=== PATIENT | female | born 1955 | race Two or more races ===

== ENCOUNTER 2024-06-15 08:41 | Inpatient (IN) | payer MEDICARE, BC, SELFPAY ==
[2024-05-22 13:54] VITALS: BMI 32.2
[2024-05-22 13:59] LABS: Hematocrit 44.3 % (37.0-47.0); Hemoglobin 14.3 g/dL (12.0-16.0); Mean Corp Hgb Conc. 32.3 g/dL (33.0-37.0); Mean Corpuscular Hgb 29.5 pg (27.0-31.0); Mean Corpuscular Volume 91.3 fL (81.0-99.0); Mean Platelet Volume 9.9 fL (7.4-10.4); Platelet Count 283 10^3/uL (130-400); Red Blood Cell Count 4.85 10^6/uL (4.20-5.40); Red Cell Dist. Width 14.2 % (11.5-14.5); White Blood Cell Count 7.3 10^3/uL (4.8-10.8)
[2024-05-22 14:41] LABS: ALT (SGPT) 25 U/L (0-35); AST (SGOT) 25 U/L (14-36); Albumin 4.4 g/dl (3.5-5.0); Alkaline Phosphatase 89 U/L (38-126); Blood Urea Nitrogen 16 mg/dl (7-17); Calcium 9.5 mg/dl (8.4-10.2); Carbon Dioxide 29 mmol/L (22-30); Chloride 99 mmol/L (98-107); Estimated Creatinine Clearance 69 ml/min; Glucose 70 mg/dl (70-99); Potassium 4.8 mmol/L (3.5-5.1); Sodium 137 mmol/L (135-145); Total Bilirubin 0.3 mg/dl (0.2-1.3); Total Protein 7.4 g/dl (6.3-8.2); eGFR > 60.00
[2024-05-23 11:39] LABS: Glycohemoglobin (HgbA1c) 5.4 % (4.0-5.6)
[2024-06-08 11:55] VITALS: BMI 32.2
[2024-06-15] VITALS (9 sets, daily range): BP systolic 113–150; BP diastolic 66–82; PULSE 75–76; O2SAT 98; BMI 32.2
--- NOTE | 2024-06-15 08:38 | W.PN.UPDATE ---
Update Note
Progress Note Update
L knee OA s/p L TKA w/ Dr Parr 06/15/24
DVT prophylaxis - Eliquis at modified dosing, b/l venous foot pumps
- Home Eliquis dosing to be resumed POD 3 if remaining hemodynamically stable
HTN - + parameters - monitor BP
PAF, PACs/PVCs, and rate-related LBBB - monitor on tele
- Continue Diltiazem without interruption
- Eliquis as stated above
Suspected DIANN - sleep study advised previously but declined
- Monitor O2
- IS
Peripheral neuropathy and cervical radiculopathy - add Gabapentin HS
Recent UTI - treatment w/ Ceftin pre-op
- IV Ancef anibal-op
HLD
R vertebral artery pseudoaneurysm
Horseshoe kidney
Chronic lacunar infarction on brain MRI 2021, no residual deficits reported
Gastric cancer, 2016, s/p gastrectomy, radiation and chemo
Osteoporosis
Obesity, BMI 32.2
[2024-06-15] MEDS: NORMOSOL-R/PLASMALYTE-A 1000 IV ×3 (09:15→14:37)
[2024-06-15] MEDS: BACTROBAN NASAL 1 GRAM NASAL (09:18)
[2024-06-15] MEDS: TYLENOL 650 MG PO ×4 (09:18→23:54)
[2024-06-15] MEDS: CELEBREX 200 MG PO (09:19)
[2024-06-15] MEDS: ULTRAM 50 MG PO ×2 (13:49→17:57)
[2024-06-15] MEDS: FLORASTOR 250 MG PO (16:41)
[2024-06-15] MEDS: CRESTOR 10 MG PO (17:56)
--- NOTE | 2024-06-15 19:17 | PTCARENOTE ---
Pt arrived aprox 1410 from PACU in bed. Pt had T LKA done. Dressing intact with ice pack applied. Pt will minimal sensation at the time to left lower leg. Pt will order lunch. Admission and assessment completed. Pain level controlled. PT will work
with patient once sensation comes back. Instructed to ring for assistance OOB.
[2024-06-15] MEDS: COLACE 100 MG PO (20:14)
[2024-06-15] MEDS: ELIQUIS 2.5 MG PO (20:14)
[2024-06-15] MEDS: CARAFATE 1 GRAM PO (20:14)
[2024-06-15] MEDS: SENOKOT 17.2 MG PO (20:15)
[2024-06-15] MEDS: HIPREX 1 GRAM PO (20:15)
[2024-06-15] MEDS: DECADRON 4 MG PO (20:15)
[2024-06-15] MEDS: ANCEF 5 IV (20:16)
[2024-06-15] MEDS: ZOFRAN 4 MG IV (20:28)
[2024-06-15] MEDS: DILAUDID 0.5 MG IV (21:58)
[2024-06-15] MEDS: BACTROBAN 2% OINTMENT 1 APPLIC NASAL (22:02)
[2024-06-15] MEDS: VITAMIN D3 (cholecalciferol) 25 MCG PO (22:02)
[2024-06-15] MEDS: NEURONTIN 300 MG PO (22:02)
[2024-06-15] MEDS: DIOVAN 40 MG PO (22:10)
[2024-06-16] MEDS: ULTRAM 50 MG PO ×2 (00:12→06:14)
[2024-06-16] MEDS: MAALOX 30 ML PO (00:12)
[2024-06-16] MEDS: ANCEF 5 IV (03:24)
[2024-06-16] MEDS: TYLENOL 650 MG PO ×2 (03:27→08:11)
[2024-06-16 03:29] VITALS: BP 138/81
[2024-06-16 07:40] VITALS: BP 154/78
[2024-06-16] MEDS: SENOKOT 17.2 MG PO (08:10)
[2024-06-16] MEDS: CARAFATE 1 GRAM PO (08:10)
[2024-06-16] MEDS: CARDIZEM CD 180 MG PO (08:10)
[2024-06-16] MEDS: BACTROBAN 2% OINTMENT 1 APPLIC NASAL (08:10)
[2024-06-16] MEDS: ELIQUIS 2.5 MG PO (08:10)
[2024-06-16] MEDS: COLACE 100 MG PO (08:10)
[2024-06-16] MEDS: DECADRON 4 MG PO (08:11)
[2024-06-16] MEDS: HIPREX 1 GRAM PO (08:11)
[2024-06-16] MEDS: FLORASTOR 250 MG PO (08:11)
[2024-06-16 09:00] VITALS: BP 143/74; PULSE 94
[2024-06-16 09:27] LABS: Hepatitis C Antibody Negative (Negative)
--- NOTE | 2024-06-16 09:55 | CM ---
Addendum entered by Lori Almaraz 06/16/24 10:06:
Son to transport home
Original Note:
IA completed
Met with patient at bedside.
Will need script for jorje - Penny Elizondo will give to PT
Patient lives with son in a 1 story home, 1 step to enter
DME: Shower chair, cane, script given for walker PT will provide
Patient stats she has PT set up with [facility] - [id number] (Kortney Smith) who will be coming to her home.
Spoke with [facility] PT office regarding patient d/c & stated they have her script for PT
Patient has family support at home - declines [facility]
IMM explained & signed-in chart
PCP: Dr. Tipton in [place]
Pharmacy: [facility], [place]
PLAN: Home with [facility] fax #: [phone]
--- NOTE | 2024-06-16 10:01 | W.PN.ORTHO ---
Today's Communication / Plan
-
D/c today since clinically stable.
Assessment
.
Distal Motor Intact: Yes
Dressing:
Scant areas of old incisional bleeding.
Assessment:
L knee OA s/p L TKA w/ Dr Parr 06/15/24
DVT prophylaxis - Eliquis at modified dosing, b/l venous foot pumps
- Home Eliquis dosing to be resumed POD 3 since hemodynamically stable
HTN - + parameters - BPs overall stable
PAF, PACs/PVCs, and rate-related LBBB - rhythm stable on tele
- Continue Diltiazem without interruption
- Eliquis as stated above
Suspected DIANN - sleep study advised previously but declined
- O2 stable on RA
- IS
Peripheral neuropathy and cervical radiculopathy - continue Gabapentin HS
Recent UTI 2* E Coli per pt - treatment w/ Ceftin pre-op
- IV Ancef anibal-op
- Given improvement of symptoms w/ Ceftin, will advise she continue script until completion upon d/c. Reportedly has 2-3 left. 1 dose to be given now. Will advised continued probiotic use while on abx
HLD
R vertebral artery pseudoaneurysm
Horseshoe kidney
Chronic lacunar infarction on brain MRI 2021, no residual deficits reported
Gastric cancer, 2016, s/p gastrectomy, radiation and chemo
Osteoporosis
Obesity, BMI 32.2
Plan
.
Surgery / Date: L TKA w/ Dr Parr 06/15/24
DVT Prophylaxis: Other (Eliquis)
Activity:
Out of bed.
PT/OT
Discharge Plan: Home (w/ home PT. Pt has set this up prior to her surgery. )
Subjective
.
.:
Patient resting comfortably in her chair.
L knee pain overall well tolerated w/ current pain meds.
Denies any new significant complaints.
Did well w/ both PT and OT.
Eager for potential d/c.
Vital Signs and Labs
.
Vital Signs and Labs:
Lab Results
05/22/24 12:05
05/22/24 12:05
Temp Pulse Resp BP Pulse Ox
98.1 F 87 18 154/78 97
06/16/24 07:40 06/16/24 07:40 06/16/24 07:40 06/16/24 07:40 06/16/24 07:40
Non-invasive Hgb result: 14.4
Physical Exam
-
HEENT: No pallor, cyanosis, or jaundice. Throat clear.
NECK: Supple. No JVD.
RESPIRATORY: Lungs clear to auscultation.
CVS: S1, S2 normal. RRR.�
ABDOMEN: Soft, non-tender. No distension. Obese.
EXTREMITIES: Expected post-surgical L knee edema. Strength equal, no calf pain with palpation/dorsiflexion. Calves soft.
CLEANING MAID: AOx3. No focal deficits. black oxide coating equipment tender grossly intact
--- NOTE | 2024-06-16 10:14 | W.DS.TRANS ---
DC Summary - Tool Design Engineer
-
Discharge Instructions:
Sleep Apnea Risk Low
Discharge Diagnosis/Procedures L knee OA s/p L TKA w/ Dr Parr 06/15/24
Diet Regular
Activity As tolerated,With Walker
Driving Restrictions Not until seen by your Dr
Bathing Restrictions OK to Shower
Other Services PT
Wound Care Dressing to be removed 1 week post-surgery.
[place] to be removed at 2 week follow-up with
surgeon's office.
Instructions:
Stand-Alone Forms: Total Hip/Knee Replacement D/C
Changes to Home Medications: Yes
Discharge Medications:
DC Medications w/original date entered in [facility]
B-complex with vitamin C 1 cap PO HS Supplement 05/21/24
Cranberry Pac 1 dose PO HS Supplement 05/21/24
Hair, Skin, Nails with Biotin 1 dose PO DAILY Supplement 05/21/24
Probiotic 1 dose PO DAILY Supplement 05/21/24
Women's Multi 1 dose PO DAILY Supplement 05/21/24
apixaban 5 mg tablet (Eliquis) 5 mg PO DAILY Heart Disease/Condition 05/21/24
calcium 600 mg (as carbonate)-vitamin D3 10 mcg (400 unit) tablet (Calcium 600 + D(3)) 1 tab PO HS Supplement 05/21/24
diltiazem HCl 180 mg capsule,24 hr,extended release 180 mg PO DAILY Heart Disease/Condition 05/21/24
methenamine hippurate 1 gram tablet 1 g PO BID Urinary Issue 05/21/24
rosuvastatin 10 mg tablet 10 mg PO QPM High Cholesterol 05/21/24
sucralfate 1 gram tablet 1 g PO BID Gastrointestinal Issue 05/21/24
dexamethasone 4 mg tablet 4 mg PO BID inflammation #6 tabs 05/22/24
gabapentin 300 mg capsule 300 mg PO HS sleep/pain #10 caps 05/22/24
mupirocin 2 % topical ointment 1 applic topical BID infection prevention #1 tube 05/22/24
ondansetron 4 mg disintegrating tablet 4 mg PO Q6H PRN n/v #20 tabs 05/22/24
tramadol 50 mg tablet 50 mg PO Q6H PRN 1 tab moderate pain, 2 if severe #30 tabs 05/22/24
acetaminophen 500 mg tablet (Tylenol Extra Strength) 1,000 mg (2 x 500 mg) PO Q6H pain #60 tabs 06/16/24
apixaban 2.5 mg tablet (Eliquis) 2.5 mg PO BID #3 tabs 06/16/24
cefuroxime axetil 250 mg tablet 250 mg PO BID Infection #3 tabs 06/16/24
cholecalciferol (vitamin D3) 25 mcg (1,000 unit) tablet (Vitamin D3) 25 mcg PO HS #0 tabs 06/16/24
docusate sodium 100 mg capsule 100 mg PO BID #30 caps 06/16/24
sennosides 8.6 mg tablet (Lakeshia-jimenez) 17.2 mg (2 x 8.6 mg) PO BID #30 tabs 06/16/24
valsartan 40 mg tablet 40 mg PO HS Blood Pressure #30 tabs 06/16/24
Home Medication Changes
dexamethasone 4 mg tablet 4 mg PO BID inflammation #6 tabs 05/22/24
gabapentin 300 mg capsule 300 mg PO HS sleep/pain #10 caps 05/22/24
mupirocin 2 % topical ointment 1 applic topical BID infection prevention #1 tube 05/22/24
ondansetron 4 mg disintegrating tablet 4 mg PO Q6H PRN n/v #20 tabs 05/22/24
tramadol 50 mg tablet 50 mg PO Q6H PRN 1 tab moderate pain, 2 if severe #30 tabs 05/22/24
acetaminophen 500 mg tablet (Tylenol Extra Strength) 1,000 mg (2 x 500 mg) PO Q6H pain #60 tabs 06/16/24
apixaban 2.5 mg tablet (Eliquis) 2.5 mg PO BID #3 tabs 06/16/24
docusate sodium 100 mg capsule 100 mg PO BID #30 caps 06/16/24
sennosides 8.6 mg tablet (Lkaeshia-jimenez) 17.2 mg (2 x 8.6 mg) PO BID #30 tabs 06/16/24
Pending Results: No
[2024-06-16] MEDS: CEFTIN 250 MG PO (10:38)
[2024-06-16 10:54] VITALS: BP 143/74; O2SAT 94
[2024-06-16 11:00] VITALS: BP 147/80
== END 2024-06-16 11:23 | disposition home or self-care (01) | DRG 470 ==
LOC: 2 SOUTH 08:41
PROVIDERS: ADMITTING PHYSICIAN Specialist; FAMILY PHYSICIAN Internal Medicine
PROC: 0SRD0J9 Replacement of Left Knee Joint with Synthetic Substitute, Cemented, Open Approach (ICD-10-PCS; 2024-06-15)
DX: M17.12 Unilateral primary osteoarthritis, left knee (principal); N39.0 Urinary tract infection, site not specified; E66.9 Obesity, unspecified; I48.0 Paroxysmal atrial fibrillation; M54.12 Radiculopathy, cervical region; I44.7 Left bundle-branch block, unspecified; I49.3 Ventricular premature depolarization; I10 Essential (primary) hypertension; E78.5 Hyperlipidemia, unspecified; M81.0 Age-related osteoporosis without current pathological fracture; I72.6 Aneurysm of vertebral artery; G47.33 Obstructive sleep apnea (adult) (pediatric); B96.20 Unspecified Escherichia coli [E. coli] as the cause of diseases classified elsewhere; G62.9 Polyneuropathy, unspecified; I49.1 Atrial premature depolarization; Z96.651 Presence of right artificial knee joint; Q63.1 Lobulated, fused and horseshoe kidney; Z85.028 Personal history of other malignant neoplasm of stomach; Z68.34 Body mass index [BMI] 34.0-34.9, adult; Z92.21 Personal history of antineoplastic chemotherapy; Z92.3 Personal history of irradiation; Z90.3 Acquired absence of stomach [part of]; Z90.49 Acquired absence of other specified parts of digestive tract; Z86.73 Personal history of transient ischemic attack (TIA), and cerebral infarction without residual deficits; Z91.048 Other nonmedicinal substance allergy status; Z79.01 Long term (current) use of anticoagulants; Z87.440 Personal history of urinary (tract) infections
CPT/HCPCS: 36415; 73560; 80053; 83036; 85027; 86803; 87070; 97110; 97116; 97162; 97166; 97530; 97535; C1713; C1776

== ENCOUNTER 2024-06-27 15:05 | Inpatient (IN) | payer MEDICARE, BC, SELFPAY ==
[2024-06-27 10:20] VITALS: BP 157/86
[2024-06-27 12:52] LABS: % Basophils 0.2 % (0-2); % Eosinophils 0.2 % (0-6); % Immature Granulocytes 0.6 % (0-0.5); % Lymphocytes 7.4 % (20.5-51.1); % Neutrophils 85.6 % (42.2-75.2); Absolute Immature Granulocytes 0.1 10^3/uL (0-0.05); Absolute Lymphocytes 1.1 10^3/uL (1.2-3.4); Absolute Monocytes 0.9 10^3/uL (0.1-0.6); Absolute Neutrophils 13.3 10^3/uL (1.4-6.5); Hematocrit 37.3 % (37.0-47.0); Mean Corp Hgb Conc. 32.2 g/dL (33.0-37.0); Mean Corpuscular Hgb 29.7 pg (27.0-31.0); Mean Corpuscular Volume 92.3 fL (81.0-99.0); Mean Platelet Volume 8.2 fL (7.4-10.4); Nucleated Red Blood Cells % 0 %; Platelet Count 336 10^3/uL (130-400); Red Blood Cell Count 4.04 10^6/uL (4.20-5.40); Red Cell Dist. Width 15.3 % (11.5-14.5); White Blood Cell Count 15.5 10^3/uL (4.8-10.8)
--- NOTE | 2024-06-27 13:01 | ED.GENMED ---
History of Present Illness
General
Chief Complaint: Post Operative Problem(s)
Source: patient
Exam Limitations: none
Time Seen by Provider: 06/27/24 10:57
Nursing documentation reviewed up to this point in time: agreed with
History of Present Illness
History of Present Illness:
69-year-old female with a past medical history of hypertension, hyperlipidemia, atrial fibrillation on Eliquis who presents to the ER for evaluation of left leg pain. Patient notably is status post left total knee replacement with Dr. Parr on
06/15/2024. She says she had been doing well with rehab but over the past 24 hours has developed significant pain and swelling in the left thigh/knee. She reports that this morning could not even bear weight due to pain and swelling and came to the
ER for assessment. She denies any injury or trauma that she can recall. Denies any chest pain or shortness of breath. She has been compliant with her Eliquis.
Review of Systems
Review of Systems
All Other Systems: ROS reviewed and negative except as documented in HPI and ROS
Constitutional: Denies fever
Respiratory: Denies trouble breathing
Cardiac: Denies chest pain
Musculoskeletal: Reports edema and other (Left leg pain and swelling)
Phy Exam
Physical Exam
Physical Exam:
General: Awake, alert, no acute distress
Head: Normocephalic, atraumatic
Eyes: Conjunctiva normal
Throat: Airway intact, handling secretions
Neck: Trachea midline, supple without meningismus
Lungs: Breathing comfortably no distress
Heart: Regular rate
Neuro: No gross deficits
Skin: Incision clean and dry with no erythema on left anterior knee
Extremities: Patient has marked edema in the left lower extremity, significant swelling specifically of the distal left thigh; patient has significant ecchymosis just proximal to the left knee and in the popliteal region/posterior thigh and
tenderness in this area; she does have a strong distal pulse in the left lower extremity both PT and DP palpable
Scores
Heart Failure Risk
Heart Failure Risk Score: Not Applicable
Heart Score for Chest Pain Patients
STEMI patient?: Not applicable
Withdrawal Assessment of Alcohol
Withdrawal Assessment Completed?: Not applicable
Course
Orders/Labs/Results
Orders:
Orders
06/27/24 10:58
US Periph Venous LOWER Ext LT Urgent
Comment:
Reason For Exam: swelling and pain s/p knee replacement
06/27/24 12:23
CT Lower Ext Angio W/wo Iv Con Urgent
Comment: CT angio--eval for extrav into thigh
Reason For Exam: thigh pain and swelling, brusing;
06/27/24 12:42
Type+Screen Urgent
Complete Blood Count/With Diff Urgent
Comprehensive Metabolic Panel Urgent
PTT Urgent
Prothrombin Time Urgent
06/27/24 12:54
ABO2 Urgent
BBK Wristband Number:
Associate notified that ABO2 has been ordered: ATIFF-ER
Date: 06/27/24
Time: 12:55
Elevator Erector ID: [id number]
06/27/24 14:13
HYDROmorphone [Dilaudid] 0.5 mg IV NOW STA
Abnormal Lab Results
06/27/24
12:42
WBC 15.5 H 10^3/uL
(4.8-10.8)
RBC 4.04 L 10^6/uL
(4.20-5.40)
MCHC 32.2 L g/dL
(33.0-37.0)
RDW 15.3 H %
(11.5-14.5)
Abs Immat Gran (auto) 0.1 H 10^3/uL
(0-0.05)
Absolute Neuts (auto) 13.3 H 10^3/uL
(1.4-6.5)
Absolute Lymphs (auto) 1.1 L 10^3/uL
(1.2-3.4)
Absolute Monos (auto) 0.9 H 10^3/uL
(0.1-0.6)
Immature Gran % 0.6 H %
(0-0.5)
Neutrophils % 85.6 H %
(42.2-75.2)
Lymphocytes % 7.4 L %
(20.5-51.1)
PT 17.1 H Sec
(11.4-14.6)
APTT 40.1 H Sec
(23.4-35.0)
Creatinine 0.5 L mg/dL
(0.6-1.0)
06/27/24 12:42
06/27/24 12:42
Vital Signs
Initial and Last Documented VS:
Initial Vital Signs
Temp Pulse Resp BP Pulse Ox
36.9 C 100 16 157/86 99
06/27/24 10:20 06/27/24 10:20 06/27/24 10:20 06/27/24 10:20 06/27/24 10:20
Last Documented Vital Signs
Temp Pulse Resp BP Pulse Ox
36.9 C 94 18 159/65 97
06/27/24 10:20 06/27/24 13:07 06/27/24 13:07 06/27/24 13:07 06/27/24 13:07
MDM/Problems Addressed
Differential Diagnosis Includes:
DVT, hematoma, postoperative swelling
MDM/Problems Addressed:
69-year-old female who is status post left knee replacement presents with increased swelling and pain in the left lower extremity as well as new bruising. Vitals and exam as above. She is notably on Eliquis. DVT study done in triage pending but
much lower suspicion for DVT; given acuity of onset significant ecchymosis and use of Eliquis suspicion is for acute hematoma in the left thigh. Given relative rapid increase in swelling and pain will check CT to evaluate for any active
extravasation. Will check labs including hemoglobin. Reassess after the above.
Labs reviewed she has slight leukocytosis likely postoperative hemoglobin 12 stable. CMP unremarkable. CTA of the lower extremity does show left suprapatellar hematoma with a tiny area of extravasation�reviewed with radiology not large enough for
intervention recommended compression dressing which we applied. Will admit for pain control, serial exams and trending of hemoglobin given that she is on anticoagulation. Discussed case with hospitalist.
Chronic conditions affecting care:
Atrial fibrillation on Eliquis complicates leg hematoma
*Radiology
Radiology exam reviewed: radiology read reviewed
*Pulse Oximetry
Patient hypoxic: no
*Critical Care Note
Total Time (30-74mins, 75-104mins- exclusive of procedures): Not Applicable
Data Reviewed
Review of Other/Old Records Reveals: Labs and Records
Source: patient, records and family
Patient Management
Discussion with other providers: Hospitalist (Discussed with hospitalist) and Radiologist (Discussed with radiology)
Escalation/DeEscalation of care consider admission/obs:
Admission indicated
ED Attending Note
-
Portions of this chart may have been created with voice recognition software.� Occasional wrong word or��sound alike� substitutions may have occurred due to the inherent limitations of voice recognition software.
Discharge Plan
Departure
Patient Disposition: Admit
Date of Disposition: 06/27/24
Time of Disposition: 14:22
Admit to doctor: Mansi
Presentation/result/management discussed w/ accepting MD/DO: Hospitalist
Discharge Problem:
Hematoma of left thigh
Prescriptions:
No Action
diltiazem HCl 180 mg Capsule,Extended Release 24hr
180 mg PO DAILY
sucralfate 1 gram Tablet
1 g PO BID
methenamine hippurate 1 gram Tablet
1 g PO BID
B-complex with vitamin C Capsule
1 cap PO HS
rosuvastatin 10 mg Tablet
10 mg PO QPM
calcium carbonate-vitamin D3 [Calcium 600 + D(3)] 600 mg-10 mcg (400 unit) Tablet
1 tab PO HS
Eliquis 5 mg Tablet
5 mg PO DAILY
Cranberry Pac
1 dose PO HS
Hair, Skin, Nails with Biotin
1 dose PO DAILY
Probiotic
1 dose PO DAILY
Women's Multi
1 dose PO DAILY
mupirocin 2 % ointment
1 applic topical BID Qty: 1 0RF
Patient Comments:
Patient administered this medication on 06/14/24 @ 2100. Patient started this medication application on 06/12/24 in the morning.
tramadol 50 mg tablet
50 mg PO Q6H PRN (Reason: 1 tab moderate pain, 2 if severe) Qty: 30 0RF
Rx Instructions:
ongoing therapy
dexamethasone 4 mg tablet
4 mg PO BID Qty: 6 0RF
Rx Instructions:
take with food
post-op use only
gabapentin 300 mg capsule
300 mg PO HS Qty: 10 0RF
ondansetron 4 mg tablet,disintegrating
4 mg PO Q6H PRN (Reason: n/v) Qty: 20 0RF
Rx Instructions:
take 1/2h b/f pain med if recurrent nausea
allow to dissolve in mouth w/o water
docusate sodium 100 mg Capsule
100 mg PO BID Qty: 30 0RF
Eliquis 2.5 mg Tablet
2.5 mg PO BID Qty: 3 0RF
Rx Instructions:
Cut 5 mg tab in 04/30 (= 2.5 mg) and continue twice daily from 06/16 PM to 06/17 PM.
Can resume Eliquis 5 mg twice a day on 06/18 AM.
sennosides [Lakeshia-jimenez] 8.6 mg Tablet
17.2 mg PO BID Qty: 30 0RF
cefuroxime axetil 250 mg Tablet
250 mg PO BID Qty: 3 0RF
Rx Instructions:
Continue until finished for UTI.
Take daily probiotic while on this.
acetaminophen [Tylenol Extra Strength] 500 mg Tablet
1,000 mg PO Q6H Qty: 60 0RF
Rx Instructions:
DO NOT exceed >4000 mg daily.
valsartan 40 mg Tablet
40 mg PO HS Qty: 30 0RF
Rx Instructions:
HOLD IF systolic blood pressure <130 while on Tramadol.
cholecalciferol (vitamin D3) [Vitamin D3] 25 mcg (1,000 unit) Tablet
25 mcg PO HS Qty: 0 0RF
Referrals:
Valerio Tipton MD [Family Provider] -
Interventions
Interventions:
*Risk Screen - Suicide Last Done: 06/27/24 10:21
*General Assessment Last Done: 06/27/24 13:07
*Neglect/Abuse Screening Last Done: 06/27/24 10:21
ED-Skin Assessment Last Done: 06/27/24 13:07
Discharge Date and Time
Print Language: CZECH
[2024-06-27 13:02] LABS: INR 1.37; PT 17.1 Sec (11.4-14.6)
[2024-06-27 13:03] LABS: APTT 40.1 Sec (23.4-35.0)
[2024-06-27 13:07] VITALS: BP 159/65
[2024-06-27 13:19] LABS: ALT (SGPT) 19 U/L (0-35); AST (SGOT) 24 U/L (14-36); Albumin 3.9 g/dl (3.5-5.0); Alkaline Phosphatase 89 U/L (38-126); Blood Urea Nitrogen 15 mg/dl (7-17); Calcium 9.4 mg/dl (8.4-10.2); Carbon Dioxide 27 mmol/L (22-30); Chloride 100 mmol/L (98-107); Glucose 97 mg/dl (70-99); Potassium 3.6 mmol/L (3.5-5.1); Sodium 137 mmol/L (135-145); Total Bilirubin 1.3 mg/dl (0.2-1.3); Total Protein 6.7 g/dl (6.3-8.2); eGFR > 60.00
[2024-06-27] MEDS: DILAUDID 0.5 MG IV ×2 (14:15→22:44)
--- NOTE | 2024-06-27 14:48 | HPS.HSE ---
Family Physician
-
Family Physician: Valerio Tipton
Chief Complaint
-
Lt knee pain and swelling
History of Present Illness
HPI
69F HX S/? Lt TKA as of 06/15/24 ( Dr Trimble) , on Eliquis , HX Prx AF, HTN seen at ER :
- over the past 24 hours has developed significant pain and swelling in the left thigh/knee.
- reports doing well with rehab till last 24 hrs
- this morning could not even bear weight due to pain and swellin
- She denies any injury or trauma that she can recall.
Urinary frequency
Denied dysuria
ROS:
Denies any chest pain or shortness of breath. She has been compliant with her Eliquis.
Medical History
Past Medical History
Past Medical History: Reports Arrhythmia (Prx A Fib on Eliquis ) and HTN
Past Surgical History: Reports Orthopedic (Lt TKA as of 06/15/24 ( Dr Trimble))
Social History
Tobacco: Non-smoker
Alcohol: None
Family History
Family History: Not pertinent
Allergies / Home Medications
Allergies reflects when Allergies were last updated in [employer].
Home Medications with original date entered in [employer]
Allergy/Medication List:
Allergies
Allergy/AdvReac Type Severity Reaction Status Date / Time
adhesive tape Allergy Rash Verified 06/15/24 08:57
Home Medications
B-complex with vitamin C 1 cap PO HS Supplement 05/21/24
Lactobac no.2-Bifidobac no.1-S. thermo 112.5 billion cell capsule (Visbiome) 1 cap PO DAILY Supplement ##0 05/21/24
biotin 10,000 mcg chewable tablet (Hair, Skin and Nails (biotin)) 10,000 mcg PO DAILY Supplement ##0 05/21/24
calcium 600 mg (as carbonate)-vitamin D3 10 mcg (400 unit) tablet (Calcium 600 + D(3)) 1 tab PO HS Supplement 05/21/24
cranberry fruit 450 mg tablet (cranberry) 450 mg PO DAILY Supplement ##0 05/21/24
diltiazem HCl 180 mg capsule,24 hr,extended release 180 mg PO DAILY Heart Disease/Condition 05/21/24
methenamine hippurate 1 gram tablet 1 g PO BID Urinary Issue 05/21/24
rosuvastatin 10 mg tablet 10 mg PO QPM High Cholesterol 05/21/24
sucralfate 1 gram tablet 1 g PO BID Gastrointestinal Issue 05/21/24
therapeutic multivitamin 1 tab PO DAILY Supplement ##0 05/21/24
cefuroxime axetil 250 mg tablet 250 mg PO BID Infection #3 tabs 06/16/24
cholecalciferol (vitamin D3) 25 mcg (1,000 unit) tablet (Vitamin D3) 25 mcg PO HS #0 tabs 06/16/24
docusate sodium 100 mg capsule 100 mg PO BID #30 caps 06/16/24
valsartan 40 mg tablet 40 mg PO HS Blood Pressure #30 tabs 06/16/24
acetaminophen 500 mg tablet (Tylenol Extra Strength) 1,000 mg PO Q6HPRN PRN mild pain 06/27/24
apixaban 5 mg tablet (Eliquis) 5 mg PO BID 06/27/24
tramadol 50 mg tablet 50 mg PO Q6HPRN PRN moderate pain 06/27/24
Review of Systems
-
Constitutional: Reports No Symptoms
EENT: Reports No Symptoms
Respiratory: Reports No Symptoms
Cardiac: Reports No Symptoms
Abdomen/GI: Reports No Symptoms
: Reports No Symptoms
Musculoskeletal: Reports See HPI
Skin: Reports No Symptoms
Neurological: Reports No Symptoms
Endocrine: Reports No Symptoms
Hematologic/Lymphatic: Reports No Symptoms
Psych: Reports No Symptoms
Physical Exam
Vital Signs
Vital Signs
Temp Pulse Resp BP Pulse Ox
98.5 F 94 18 159/65 97
03/01/25 10:20 06/27/24 13:07 06/27/24 13:07 06/27/24 13:07 06/27/24 13:07
Physical Exam
General: Well Developed, Well Nourished and No Apparent Distress
HEENT: NormoCephalic, Moist mucous membranes and Atraumatic
Respiratory: Clear
Cardiac: S1/S2 and Regular Rhythm; No Murmur or Rub
GI: Soft, Non Tender, Non Distended and Normal Bowel Sounds; No Organomegaly
Rectal: Deferred by Provider
Musculoskeletal: Other (marked edema in the left lower extremity, significant swelling specifically of the distal left thigh; patient has significant ecchymosis just proximal to the left knee and in the popliteal region/posterior thigh and
tenderness in this area; she does have a strong distal pulse in the left lower extre)
Skin: No Rash
Neuro: Nonfocal/grossly intact
Laboratory Results
-
06/27/24 12:42
06/27/24 12:42
Laboratory Results
PT 17.1 Sec (11.4-14.6) H 06/27/24 12:42
INR 1.37 06/27/24 12:42
APTT 40.1 Sec (23.4-35.0) H 06/27/24 12:42
Total Bilirubin 1.3 mg/dl (0.2-1.3) 06/27/24 12:42
AST 24 U/L (14-36) 06/27/24 12:42
ALT 19 U/L (0-35) 06/27/24 12:42
Alkaline Phosphatase 89 U/L (38-126) 06/27/24 12:42
Data Reviewed
-
CT Scan: Report Reviewed by me
Lab Data: Labs Reviewed by me
Old Records: Reviewed
Impression/Plan
-
Reviewed VS: unremarkable
Vital Signs
Temp Pulse Resp BP Pulse Ox
98.5 F 101 20 155/78 99
06/27/24 10:20 06/27/24 14:50 06/27/24 14:50 06/27/24 14:50 06/27/24 14:50
Data
Laboratory Tests
05/22/24 06/27/24
12:05 12:42
WBC 7.3 15.5 H
Hgb 14.3 12.0
Plt Count 336
INR 1.37
Creatinine 0.5 L
Total Bilirubin 1.3
CT Lower Ext Angio W/wo Iv Con
- Findings suspicious for suprapatellar hematoma, difficult to measure as well as findings suspicious for tiny focus of active arterial bleeding from tiny branch vessel in the suprapatellar region, as detailed above.
US Periph Venous LOWER Ext LT
- No findings to confirm deep venous thrombosis of the left lower extremity, evaluation somewhat limited due to patient discomfort.
Last admission: DATE OF ADMISSION: 06/15/2024 - DATE OF DISCHARGE: 06/16/2024
DC Dx;
post left total knee arthroplasty by Dr. Ken Parr on 06/15/2024
Hypertension.
Paroxysmal atrial fibrillation, chronic left bundle branch block.
Suspected obstructive sleep apnea, sleep study advised previously, but declined.
Peripheral neuropathy and cervical radiculopathy.
Recent urinary tract infection secondary to Escherichia coli, started on Ceftin preoperatively.
ASSESSMENT & PLAN
Non traumatic Lt suprapatellar hematoma associated with eliquis use complicated by pain andd swelling of Lt knee
Asso. acute ambulatory dysfunction
- post left total knee arthroplasty by Dr. Ken Parr on 06/15/2024
- Last dose of Eliquis: this AM
- Vitals and Hgb stable.
- Hold Eliquis
- No DVT on U
- ER reviewed with radiologist; it is not large enough for IRAD intervention, rec'd compression dressing which we placed.
- serial exams and trend hemoglobins
- PRN analgesisa
- PT/OT
- ER courtesy consult to Ortho who covering for Dr Trimble
Urinary frequency
Denied dysuria
Recent UTI secondary to Escherichia coli; s/p Ceftin preoperatively
- check UA
- [place] placement
Paroxysmal AF
chronic Lt BBB
- Hold Eliquis for now
Benign HTN
- c/w MAPPING PILOT Diltiazem CD
Clinically suspected DIANN
- sleep study advised previously, but declined.
Peripheral neuropathy and cervical radiculopathy.
- c/w MAPPING PILOT Gabapentin
DVT Px: SCD to Rt Leg
Code: Full
IP TLM
[2024-06-27 14:50] VITALS: BP 155/78
[2024-06-27 16:53] VITALS: BP 148/59; BMI 24.6
--- NOTE | 2024-06-27 16:55 | PTCARENOTE ---
Received patient from ED via stretcher. Pt AAOX3. Pox: 95% RA. NSR on home economics expert. Family at bedside. Call cunningham within reach. Plan of care ongoing.
[2024-06-27] MEDS: CRESTOR 10 MG PO (18:10)
[2024-06-27 18:51] LABS: Urine Albumin 2+ (Neg - Trace); Urine Bilirubin Negative (Negative); Urine Color Yellow; Urine Glucose 1+ (Negative); Urine Ketone 1+ (Negative); Urine Leukocyte 3+ (Negative); Urine Nitrite Positive (Negative); Urine Occult Blood 2+ (Negative); Urine Urobilinogen Negative (Neg - 1+)
[2024-06-27 18:52] LABS: Urine Character Cloudy (Clear)
[2024-06-27 19:07] VITALS: BP 139/80
[2024-06-27 19:13] LABS: Urine Bacteria Many (Negative); Urine White Cell >100 /HPF (0-5)
[2024-06-27] MEDS: CEFTIN 250 MG PO (19:55)
[2024-06-27] MEDS: CARAFATE 1 GRAM PO (19:55)
[2024-06-27] MEDS: COLACE 100 MG PO (19:55)
[2024-06-27] MEDS: HIPREX 1 GRAM PO (19:55)
[2024-06-27] MEDS: ULTRAM 50 MG PO (21:09)
[2024-06-27] MEDS: OSCAL 500 + D 500 MG PO (21:15)
[2024-06-27] MEDS: VITAMIN D3 (cholecalciferol) 25 MCG PO (21:15)
[2024-06-27] MEDS: DIOVAN 40 MG PO (21:15)
[2024-06-27 23:06] VITALS: BP 136/90
[2024-06-28] MEDS: DILAUDID 0.5 MG IV (03:07)
[2024-06-28 03:08] VITALS: BP 132/85
[2024-06-28 06:39] LABS: Hematocrit 33.1 % (37.0-47.0); Hemoglobin 10.8 g/dL (12.0-16.0); Mean Corp Hgb Conc. 32.6 g/dL (33.0-37.0); Mean Corpuscular Hgb 29.6 pg (27.0-31.0); Mean Corpuscular Volume 90.7 fL (81.0-99.0); Mean Platelet Volume 8.6 fL (7.4-10.4); Platelet Count 320 10^3/uL (130-400); Red Blood Cell Count 3.65 10^6/uL (4.20-5.40); Red Cell Dist. Width 15.5 % (11.5-14.5); White Blood Cell Count 11.5 10^3/uL (4.8-10.8)
[2024-06-28 07:54] VITALS: BP 145/86
[2024-06-28] MEDS: CARDIZEM CD 180 MG PO (08:03)
[2024-06-28] MEDS: CARAFATE 1 GRAM PO ×2 (08:03→19:24)
[2024-06-28] MEDS: COLACE 100 MG PO ×2 (08:04→19:24)
[2024-06-28] MEDS: HIPREX 1 GRAM PO ×2 (08:04→19:23)
[2024-06-28] MEDS: CEFTIN 250 MG PO (08:04)
--- NOTE | 2024-06-28 08:45 | W.PN.UPDATE ---
Update Note
Progress Note Update
Patient seen and examined by Orthopedic surgery this morning. 69-year-old female 13 days s/p left total knee replacement performed on 06/15/2024 under the direction of Dr. Parr. Initially post-operatively, the patient reports that she was
progressing very well. She reports obtaining physical therapy at home 3x/week (last session 06/26). She is ambulating with a walker for assistance. She reports compliance with Eliquis as directed post-operatively. She was on
modified dose until postop day #3, at which time full dose was resumed. Eliquis is currently now on hold. She was taking OTC Tylenol and Tramadol at nighttime. She denies any constitutional symptoms or any lower extremity paresthesias.
After PT session Saturday, she noticed that her leg was heavier. She reports that her physical therapist was working on flexion exercises. The patient denies any falls or traumatic events. She denies hearing any audible pops or any acute
onset of pain. Since PT Saturday, she reports gradual worsening of pain and swelling of the left lower extremity. She reports swelling predominantly localized to the calf region with exquisite tenderness to palpation. Since admission, she
reports that her calf is not as tender. She reports difficulty with ambulation.
No evidence for DVT on ultrasound. A lower extremity CT was also ordered revealing findings suspicious for suprapatellar hematoma, difficult to measure as well as findings suspicious for tiny focus of active arterial bleeding from tiny branch
vessel and suprapatellar region. ER physician reviewed with Radiologist; not large enough for IRAD intervention, recommended compression dressing with serial exams and monitoring Hemoglobin.
Physical examination reveals extensive lower extremity edema with ecchymosis. No erythema. [place] intact with a well-approximated surgical incision. No active drainage and no concerns for infection. Range of motion 0 to 45 degrees limited by
pain and swelling. It is difficult to accurately assess the integrity of her extensor mechanism due to extensive edema, however she is able to perform some gentle active knee extension with her lower extremity hanging over the bedside. Sensation is
intact to light touch distally and capillary refill is less than 2 seconds. Dorsalis pedis pulse confirmed with Doppler.
Currently afebrile. Hemoglobin 10.8.
Assessment: 69-year-old female 13 days s/p left total knee replacement with extensive soft tissue swelling/suprapatellar hematoma and lower extremity edema; likely exacerbated by Eliquis use.
Plan:
1) Left knee x-rays ordered. On personal interpretation, I note a left total knee replacement with no obvious evidence for acute fracture. No obvious evidence for hardware complication. There appears to be a large suprapatellar
effusion/hematoma/soft tissue swelling. Components appear stable in comparison to post-operative films obtained on 06/15/2024.
2) Strict edema control with ice therapy, compression and elevation. Compressive JOEY wrap applied from toes to proximal thigh this AM.
3) Continue treatment per primary team.
4) PT/OT as tolerated.
4) Orthopedic surgery will continue to follow along.
--- NOTE | 2024-06-28 10:28 | CM ---
CM met with pt bedside
Pt admitted to from 06/15-06/16 for a L TKA
Discharged home with WW nnd home visiting PT through [facility]
Pt resides with her son in a ranc[place] with 1STE
Pt is typically indep. with her ADLs
Has a WW, SPC and shower chair for use as needed
PCP- Valerio Tipton
Rx- [facility]
PT/OT orders placed and pending
Discharge Disposition- anticipate home with [facility]
Phone- [phone] Fax- [phone]
[2024-06-28 11:04] VITALS: BP 135/58
--- NOTE | 2024-06-28 12:23 | W.PN.HOSP.TC ---
Today's Communication/Plan
-
trend hgb
compressions to left knee
imaging and recs per ortho
ceftriaxone
Assessment / Plan
Assessment / Plan
Non traumatic Lt suprapatellar hematoma associated with eliquis use complicated by pain and swelling of Lt knee
Asso. acute ambulatory dysfunction
- post left total knee arthroplasty by Dr. Ken Parr on 06/15/2024
- Last dose of Eliquis: 3/1 am
- Vitals and Hgb stable.
- Hold Eliquis
- No DVT on U
- no fx by XR
- serial exams and trend hemoglobins
- PRN analgesisa
- PT/OT
- Ortho recs
Urinary frequency
Denied dysuria
Recent UTI secondary to Escherichia coli; s/p Ceftin preoperatively
- check UA - still Positive
- Purwick placement
-Switch to ceftriaxone and f/u cultures
Paroxysmal AF
chronic Lt BBB
- Hold Eliquis for now
Benign HTN
- c/w ASSOCIATE DIRECTOR OF SALES Diltiazem CD
Clinically suspected DIANN
- sleep study advised previously, but declined.
Peripheral neuropathy and cervical radiculopathy.
- c/w ASSOCIATE DIRECTOR OF SALES Gabapentin
DVT Px: SCD to Rt Leg
Code: Full
Anticipated Discharge: 24 - 48 hours
Subjective/Interval History
-
Date of Service: June 28, 2024
compressions placed on left knee
Objective Data
-
Labs:
Laboratory Results
06/28/24
06:02
WBC 11.5 H
Hgb 10.8 L
Hct 33.1 L
Plt Count 320
Vital Signs:
Vital Signs
Temp Pulse Resp BP Pulse Ox
97.9 F 108 18 135/58 95
06/28/24 11:04 06/28/24 11:04 06/28/24 11:04 06/28/24 11:04 06/28/24 11:04
I&O
06/27/24 06/28/24 06/29/24
06:59 06:59 06:59
Intake Total 960 / 960
Output Total 850 / 850
Balance 110 / 110
Review of Systems
-
History Source: Patient
All other systems: Not reviewed unless documented
Data Reviewed
-
Diagnostic Radiology: Report Reviewed by me
CT Scan: Report Reviewed by me
Labs: Labs Reviewed by me
[2024-06-28] MEDS: STERILE WATER FOR INJECTION 10 ML IV (14:27)
[2024-06-28] MEDS: TYLENOL 650 MG PO ×2 (14:49→21:17)
[2024-06-28] MEDS: SENOKOT-S 1 TABLET PO (14:49)
[2024-06-28] MEDS: ROCEPHIN 1000 MG IV (14:51)
[2024-06-28 15:33] VITALS: BP 124/77
[2024-06-28] MEDS: CRESTOR 10 MG PO (18:20)
[2024-06-28 19:20] VITALS: BP 134/76
[2024-06-28] MEDS: OSCAL 500 + D 500 MG PO (21:08)
[2024-06-28] MEDS: VITAMIN D3 (cholecalciferol) 25 MCG PO (21:08)
[2024-06-28] MEDS: ULTRAM 50 MG PO (21:17)
[2024-06-28] MEDS: DIOVAN 40 MG PO (21:20)
[2024-06-28 23:16] VITALS: BP 135/77
[2024-06-29] VITALS (8 sets, daily range): BP systolic 101–126; BP diastolic 57–78; PULSE 104; O2SAT 98
[2024-06-29] MEDS: TYLENOL 650 MG PO ×4 (01:33→17:56)
--- NOTE | 2024-06-29 07:30 | W.PN.HOSP.TC ---
Addendum entered and electronically signed by Silvestre Cormier MD 06/29/24 13:03:
After speaking to Orthopedics, they feel comfortable with restarting Eliquis at full dose in 3 days. Can hold Eliquis for 3 days and monitor hgb, knee.
Original Note:
Today's Communication/Plan
-
Antibiotics, follow-up final cultures
Monitor hemoglobin
Trial half dose Eliquis
Orthopedic recommendations
Assessment / Plan
Assessment / Plan
Non traumatic Lt suprapatellar hematoma associated with eliquis use complicated by pain and swelling of Lt knee
Asso. acute ambulatory dysfunction
- post left total knee arthroplasty by Dr. Ken Parr on 06/15/2024
- Last dose of Eliquis: 3/1 am
- Vitals and Hgb stable.
- Resume half dose Eliquis and monitor
- No DVT on US
- no fx by XR
- serial exams and trend hemoglobins
- PRN analgesisa
- PT/OT
- Ortho recs
Urinary frequency
Denied dysuria
Recent UTI secondary to Escherichia coli; s/p Ceftin preoperatively
- check UA - still Positive
- Purewick placement
-Switch to ceftriaxone and f/u cultures
Paroxysmal AF
chronic Lt BBB
- resume half dose eliquis and monitor
-has had brother with cva, unclear etiology
Benign HTN
- c/w RESISTOR TESTER Diltiazem CD
Clinically suspected DIANN
- sleep study advised previously, but declined.
Peripheral neuropathy and cervical radiculopathy.
- c/w RESISTOR TESTER Gabapentin
DVT Px: trial half dose eliquis;
Code: Full
Anticipated Discharge: 24 - 48 hours
Subjective/Interval History
-
Date of Service: June 29, 2024
No acute events overnight
Objective Data
-
Labs:
Laboratory Results
06/29/24
06:00
WBC Pending
Hgb Pending
Hct Pending
Plt Count Pending
Sodium Pending
Potassium Pending
Chloride Pending
Carbon Dioxide Pending
BUN Pending
Creatinine Pending
Glucose Pending
Calcium Pending
Total Bilirubin Pending
AST Pending
ALT Pending
Alkaline Phosphatase Pending
Vital Signs:
Vital Signs
Temp Pulse Resp BP Pulse Ox
98.1 F 97 16 126/78 95
06/29/24 03:15 06/29/24 03:15 06/29/24 03:15 06/29/24 03:15 06/29/24 03:15
I&O
06/28/24 06/29/24 06/30/24
06:59 06:59 06:59
Intake Total 960 / 960 480 / 480
Output Total 850 / 850 1900 / 1900
Balance 110 / 110 -1420 / -1420
Review of Systems
-
History Source: Patient
All other systems: Not reviewed unless documented
Data Reviewed
-
Diagnostic Radiology: Report Reviewed by me
CT Scan: Report Reviewed by me
Labs: Labs Reviewed by me
[2024-06-29] MEDS: HIPREX 1 GRAM PO ×2 (07:36→21:25)
[2024-06-29] MEDS: CARDIZEM CD 180 MG PO (07:36)
[2024-06-29] MEDS: COLACE 100 MG PO ×2 (07:38→21:26)
[2024-06-29] MEDS: CARAFATE 1 GRAM PO ×2 (07:38→21:26)
--- NOTE | 2024-06-29 07:53 | W.PN.UPDATE ---
Update Note
Progress Note Update
Patient is 2 weeks from Left TKA (Jun 23 [place]). Readmitted due to significant swelling of the LLE and ambulatory dysfunction. Also on Rocephin for likely UTI. Currently Afeb. We believe resuming full maintenance Eliquis has contributed to her
readmission. Discussed with attending Hospitalist, Dr. Cormier regarding her Eliquis ie holding a few days, half dosing her a little longer while we get this acute swelling under control. Currently at bedrest, with mild-moderate left knee pain. joey
wrap from ankle to thigh in place. Dressing CDI. Extensor mechanism clinically intact. ROM 0-60 with pain. SCDs were ordered, but not currently placed. New order for B/L LE SCDs (under JOEY), as well as footpumps placed. Continue Tx per the primary
medical team. PT/OT would be beneficial. Again, Eliquis to be handled by primary team. Hopefully she can be optimized and D/c soon to continue her post-op recovery. She understands the swelling will be tranisent and improve with time, but may take
weeks. Will continue to follow during her admission.
[2024-06-29 08:03] LABS: Hematocrit 34.4 % (37.0-47.0); Hemoglobin 11.2 g/dL (12.0-16.0); Mean Corp Hgb Conc. 32.6 g/dL (33.0-37.0); Mean Corpuscular Hgb 29.6 pg (27.0-31.0); Mean Platelet Volume 8.5 fL (7.4-10.4); Platelet Count 314 10^3/uL (130-400); Red Blood Cell Count 3.78 10^6/uL (4.20-5.40); Red Cell Dist. Width 15.7 % (11.5-14.5); White Blood Cell Count 10.5 10^3/uL (4.8-10.8)
[2024-06-29 08:15] LABS: ALT (SGPT) 16 U/L (0-35); AST (SGOT) 20 U/L (14-36); Albumin 3.5 g/dl (3.5-5.0); Alkaline Phosphatase 80 U/L (38-126); Blood Urea Nitrogen 15 mg/dl (7-17); Calcium 9.3 mg/dl (8.4-10.2); Carbon Dioxide 31 mmol/L (22-30); Chloride 101 mmol/L (98-107); Estimated Creatinine Clearance 87 ml/min; Glucose 105 mg/dl (70-99); Potassium 3.7 mmol/L (3.5-5.1); Sodium 137 mmol/L (135-145); Total Bilirubin 1.2 mg/dl (0.2-1.3); Total Protein 6.2 g/dl (6.3-8.2); eGFR > 60.00
[2024-06-29] MEDS: ULTRAM 50 MG PO ×2 (10:27→21:25)
[2024-06-29] MEDS: STERILE WATER FOR INJECTION 10 ML IV (13:26)
[2024-06-29] MEDS: ROCEPHIN 1000 MG IV (13:26)
[2024-06-29] MEDS: CRESTOR 10 MG PO (17:54)
[2024-06-29] MEDS: VITAMIN D3 (cholecalciferol) 25 MCG PO ×2 (21:25→21:28)
[2024-06-29] MEDS: DIOVAN PO (21:27)
[2024-06-29] MEDS: OSCAL 500 + D 500 MG PO (21:33)
[2024-06-30] MEDS: TYLENOL 650 MG PO ×3 (00:35→16:13)
[2024-06-30 03:00] VITALS: BP 122/81
[2024-06-30] MEDS: ULTRAM 50 MG PO (05:03)
[2024-06-30 07:00] VITALS: BP 106/71
[2024-06-30] MEDS: CARAFATE 1 GRAM PO (07:47)
[2024-06-30] MEDS: HIPREX 1 GRAM PO (07:47)
[2024-06-30] MEDS: COLACE 100 MG PO (07:47)
[2024-06-30] MEDS: CARDIZEM CD 180 MG PO (07:47)
--- NOTE | 2024-06-30 08:08 | W.PN.UPDATE ---
Update Note
Progress Note Update
Patient was seen and examined this morning. Patient was ambulating to the restroom back to her chair. She reports localized discomfort in the area of her calf but otherwise reports her symptoms are improving. Negative DVT ultrasound upon
admission.
-Eliquis on hold for 3 days per primary and will resume at half dose
-Knee range of motion 0 to 70 degrees
-SCDs, ambulation as tolerated with assist devices, PT/OT.
Orthopedic surgery will continue to follow
[2024-06-30 08:10] LABS: Hemoglobin 10.1 g/dL (12.0-16.0); Mean Corp Hgb Conc. 31.6 g/dL (33.0-37.0); Mean Corpuscular Hgb 29.4 pg (27.0-31.0); Mean Platelet Volume 8.9 fL (7.4-10.4); Platelet Count 299 10^3/uL (130-400); Red Blood Cell Count 3.44 10^6/uL (4.20-5.40); Red Cell Dist. Width 15.8 % (11.5-14.5); White Blood Cell Count 8.5 10^3/uL (4.8-10.8)
[2024-06-30 08:52] LABS: ALT (SGPT) 14 U/L (0-35); AST (SGOT) 16 U/L (14-36); Albumin 2.8 g/dl (3.5-5.0); Alkaline Phosphatase 76 U/L (38-126); Blood Urea Nitrogen 18 mg/dl (7-17); Calcium 8.8 mg/dl (8.4-10.2); Carbon Dioxide 27 mmol/L (22-30); Chloride 103 mmol/L (98-107); Estimated Creatinine Clearance 87 ml/min; Glucose 91 mg/dl (70-99); Potassium 3.9 mmol/L (3.5-5.1); Sodium 136 mmol/L (135-145); Total Bilirubin 0.7 mg/dl (0.2-1.3); Total Protein 5.4 g/dl (6.3-8.2); eGFR > 60.00
--- NOTE | 2024-06-30 11:07 | CM ---
Addendum entered by Lois Jimenez 06/30/24 16:59:
[facility] fax [phone]
Addendum entered by Lois Jimenez 06/30/24 16:47:
IMM completed and signed form placed on chart. Patient requested [facility] health as she was unsure if [facility] had home nurses. CM updated nursing and will add fax number when referral is complete.
Original Note:
Patient seen at bedside. Patient confirmed plan to go home with [facility] at [facility] and asked for hard copy script at discharge. Patient stated that she will have family transport home. CM will continue to follow for discharge planning needs.
Plan; home with [facility]; pt at home.
[2024-06-30 11:12] VITALS: BP 99/65
--- NOTE | 2024-06-30 13:06 | W.PN.HOSP.TC ---
Addendum entered and electronically signed by Sienna Persaud MD 07/01/24 15:02:
total DC time 40 min
Original Note:
Today's Communication/Plan
-
see A/P
Assessment / Plan
Assessment / Plan
A/P:
# Non-traumatic Lt suprapatellar hematoma, associated with eliquis use, complicated by pain and swelling of Lt knee
# acute ambulatory dysfunction
post left total knee arthroplasty by Dr. Ken Parr on 06/15/2024
Last dose of Eliquis: 3/ am
Resume half dose Eliquis upon discharge and monitor CBC outpt with PCP
No DVT on US, no fx by XR
PRN analgesisa
PT/OT cleared for HH
appreciate Ortho recs
# Urinary frequency 2/2 UTI
Denied dysuria
Recent UTI secondary to Escherichia coli; s/p Ceftin preoperatively
Urine culture with E coli, sensitivity reviewed
Ceftriaxone to Cefdinir upon discharge x3 more days
Cont home methanthline with vit C after Abx course
# Paroxysmal AF
# chronic Lt BBB
Resume half dose Eliquis upon discharge and monitor
has had brother with cva, unclear etiology
# Benign HTN
c/w MILL AND COAL TRANSPORT OPERATOR Diltiazem CD
# Clinically suspected DIANN
sleep study advised previously, but declined.
# Peripheral neuropathy and cervical radiculopathy.
c/w MILL AND COAL TRANSPORT OPERATOR Gabapentin
DVT Px: trial half dose Eliquis;
Code: Full
DW son at bedside
Anticipated Discharge: Today
Subjective/Interval History
-
Date of Service: June 30, 2024
Objective Data
-
Labs:
Laboratory Results
06/30/24
06:46
WBC 8.5
Hgb 10.1 L
Hct 32.0 L
Plt Count 299
Sodium 136
Potassium 3.9
Chloride 103
Carbon Dioxide 27
BUN 18 H
Creatinine 0.5 L
Glucose 91
Calcium 8.8
Total Bilirubin 0.7
AST 16
ALT 14
Alkaline Phosphatase 76
Vital Signs:
Vital Signs
Temp Pulse Resp BP Pulse Ox
36.9 C 101 16 99/65 98
06/30/24 11:12 06/30/24 11:12 06/30/24 11:12 06/30/24 11:12 06/30/24 11:12
I&O
06/29/24 06/30/24 07/01/24
06:59 06:59 06:59
Intake Total 480 / 480 1320 / 1320 300 / 300
Output Total 1900 / 1900
Balance -1420 / -1420 1320 / 1320 300 / 300
Review of Systems
-
History Source: Patient
All other systems: Not reviewed unless documented
Physical Exam
-
General: Well Developed, Well Nourished, No Apparent Distress, Comfortable and Conversant; Negative Respiratory Distress
HEENT: Normocephalic, Atraumatic, Nose Appears Normal and Ears Appear Normal; Negative Oxygen
Respiratory: Clear to Auscultation and Non Labored Respirations; Negative Accessory Resp Muscle Use
Cardiac: Regular Rhythm and S1/S2
GI: Soft, Nontender, Nondistended and Normal Bowel Sounds
Skin: Warm and Dry
Neuro: Awake, Alert, Oriented, AO x 3 and Nonfocal/Grossly Intact
Psych: Calm and Intact Judgement/Insight
Data Reviewed
-
Diagnostic Radiology: Report Reviewed by me
CT Scan: Report Reviewed by me
Labs: Labs Reviewed by me
--- NOTE | 2024-06-30 14:41 | PTCARENOTE ---
Patient tolerated sitting in chair for 2 hours. Patient worked on getting knee to bend. ice applied to left knee. Patient ambulated in halls with walker, gait is slow and steady.
--- NOTE | 2024-06-30 15:03 | W.DCSUMMARY ---
Discharge Summary
Discharge Data
Date of Admission: 06/27/24
Date of Discharge: 06/30/24
-
Pending Results: No
Hospital Course
Principal Diagnosis:
Non-traumatic Lt suprapatellar hematoma, associated with Eliquis use.
Acute ambulatory dysfunction
Urinary frequency 2/2 UTI
Chronic Diagnoses:�
Paroxysmal atrial fibrillation
Chronic Lt BBB
Benign hypertension
Peripheral neuropathy and cervical radiculopathy, on Gabapentin
Consultations:�
Orthopedic
Procedures:�
None
Clinical course:�
This is a 69-year-old female, with past medical history as stated above, who presented with left knee pain and swelling.
Problem 1:
Non-traumatic Lt suprapatellar hematoma, this was associated with Eliquis use.
Of note, the patient recently underwent left total knee arthroplasty by Dr. Ken Parr on 06/15/2024.
Eliquis was held temporarily while in the hospital, and she can resume decreased dose at 2.5 mg twice daily following discharge.
Her ultrasound showed no DVT, and her knee x-ray showed no fracture.
She was cleared to return home with home health per PT OT recommendation.
Problem 2:
Urinary frequency 2/2 UTI with E. coli.
This was treated with IV ceftriaxone while in the hospital, and she was discharged with cefdinir for 3 more days.
She has been informed to add vitamin C to her home methenamine after completion of antibiotic.
As for the rest of her medical problems, they were stable during her hospital stay.
Discharge Plan
-
Patient Disposition: Home with Home Care
Discharge Diagnosis/Procedures: Non-traumatic Left suprapatellar hematoma
Condition: Fair
Diet: As tolerated
Activity: As tolerated and With Walker
Driving Restrictions: As prior to admission
Blood Work: CBC, iron panel, B12 level with your PCP
Referrals:
Valerio Tipton MD [Family Provider] - in less than 1 week
Klever Rivas PA-C [Specified Professional Personl] - in two to four weeks
Additional Discharge Medication Instructions: Take Cefdinir for 3 more days, then resume methenamine and take vitamin C with methenamine.
Continue half dose Eliquis 2.5 mg twice daily
Prescriptions:
New
cefdinir 300 mg capsule
300 mg PO Q12H 3 Days Qty: 6 0RF
Eliquis 2.5 mg tablet
2.5 mg PO BID Qty: 60 0RF
ascorbic acid (vitamin C) [Vitamin C] 1,000 mg tablet
500 mg PO BID Qty: 60 0RF
Rx Instructions:
take with Methenamine
Continued
diltiazem HCl 180 mg Capsule,Extended Release 24hr
180 mg PO DAILY
sucralfate 1 gram Tablet
1 g PO BID
therapeutic multivitamin Tablet
1 tab PO DAILY Qty: 0
B-complex with vitamin C Capsule
1 cap PO HS
rosuvastatin 10 mg Tablet
10 mg PO QPM
calcium carbonate-vitamin D3 [Calcium 600 + D(3)] 600 mg-10 mcg (400 unit) Tablet
1 tab PO HS
Visbiome 112.5 billion cell Capsule
1 cap PO DAILY Qty: 0
cranberry 450 mg Tablet
450 mg PO DAILY Qty: 0
Hair, Skin and Nails (biotin) 10,000 mcg Tablet,Chewable
10,000 mcg PO DAILY Qty: 0
docusate sodium 100 mg Capsule
100 mg PO BID Qty: 30 0RF
valsartan 40 mg Tablet
40 mg PO HS Qty: 30 0RF
Rx Instructions:
HOLD IF systolic blood pressure <130 while on Tramadol.
cholecalciferol (vitamin D3) [Vitamin D3] 25 mcg (1,000 unit) Tablet
25 mcg PO HS Qty: 0 0RF
tramadol 50 mg tablet
50 mg PO Q6HPRN PRN (Reason: moderate pain)
acetaminophen [Tylenol Extra Strength] 500 mg tablet
1,000 mg PO Q6HPRN PRN (Reason: mild pain)
Held
methenamine hippurate 1 gram Tablet
1 g PO BID
Hold Instructions: Resume on 07/03/24. resume after completion of antibiotic Cefdinir
Discontinued
cefuroxime axetil 250 mg Tablet
250 mg PO BID Qty: 3 0RF
Patient Comments:
hold for surgery then restart 7 day course
Eliquis 5 mg Tablet
5 mg PO BID
Discharge Orders:
Discharge Patient (As Directed); Ordered 06/30/24
Ordered By: Sienna Persaud
Discharge Date and Time
Discharge Date/Time: 06/30/24 17:55
Print Language: POLISH
[2024-06-30 15:07] VITALS: BP 125/74
[2024-06-30 15:30] VITALS: BMI 24.6
--- NOTE | 2024-06-30 15:37 | W.PN.UPDATE ---
Update Note
Progress Note Update
At the request of the patient, to save on her 2 week follow-up outpatient, I stopped by and removed her devi. Betadine was used to clean the incision, devi were removed, and steris were applied. Continue with SCDs, foot pumps, and sanya
compression. Eliquis per primary team, currently holding. Ice and elevation. Continue with PT. No ROM restrictions. Will follow up in the office in 2-3 weeks for re-assessment.
[2024-06-30] MEDS: STERILE WATER FOR INJECTION 10 ML IV (16:12)
[2024-06-30] MEDS: ROCEPHIN 1000 MG IV (16:13)
== END 2024-06-30 17:55 | disposition home health service (06) | DRG 813 ==
LOC: 1 ACUTE 15:05
PROVIDERS: Internal Medicine; Registered Nurse; ADMITTING PHYSICIAN Internal Medicine; ATTENDING PHYSICIAN Internal Medicine; EMERGENCY PHYSICIAN Emergency Medicine; FAMILY PHYSICIAN Internal Medicine
DX: D68.32 Hemorrhagic disorder due to extrinsic circulating anticoagulants (principal); N39.0 Urinary tract infection, site not specified; M79.81 Nontraumatic hematoma of soft tissue; M25.562 Pain in left knee; I10 Essential (primary) hypertension; I48.0 Paroxysmal atrial fibrillation; E78.5 Hyperlipidemia, unspecified; G47.33 Obstructive sleep apnea (adult) (pediatric); M54.12 Radiculopathy, cervical region; M25.462 Effusion, left knee; R26.2 Difficulty in walking, not elsewhere classified; I44.7 Left bundle-branch block, unspecified; G62.9 Polyneuropathy, unspecified; D72.829 Elevated white blood cell count, unspecified; B96.20 Unspecified Escherichia coli [E. coli] as the cause of diseases classified elsewhere; Z96.652 Presence of left artificial knee joint; Z79.01 Long term (current) use of anticoagulants; R35.0 Frequency of micturition; Z91.048 Other nonmedicinal substance allergy status; Z87.440 Personal history of urinary (tract) infections; Z82.3 Family history of stroke
CPT/HCPCS: 73560; 73706; 80053; 81003; 81015; 85025; 85027; 85610; 85730; 86850; 86900; 86901; 87077; 87086; 87186; 93971; 96374; 97110; 97162; 97166; 99285; Q9967

== ENCOUNTER → 2024-07-03 12:57 | Outpatient (REF) | payer MEDICARE, BC, SELFPAY ==
[2024-07-03 14:18] LABS: % Basophils 0.5 % (0-2); % Eosinophils 1.4 % (0-6); % Immature Granulocytes 0.4 % (0-0.5); % Lymphocytes 20.7 % (20.5-51.1); % Monocytes 7.6 % (1.7-9.3); % Neutrophils 69.4 % (42.2-75.2); Absolute Eosinophils 0.1 10^3/uL (0-0.7); Absolute Lymphocytes 1.7 10^3/uL (1.2-3.4); Absolute Monocytes 0.6 10^3/uL (0.1-0.6); Absolute Neutrophils 5.7 10^3/uL (1.4-6.5); Hematocrit 37.1 % (37.0-47.0); Hemoglobin 11.8 g/dL (12.0-16.0); Mean Corp Hgb Conc. 31.8 g/dL (33.0-37.0); Mean Corpuscular Hgb 29.4 pg (27.0-31.0); Mean Corpuscular Volume 92.5 fL (81.0-99.0); Mean Platelet Volume 8.5 fL (7.4-10.4); Nucleated Red Blood Cells % 0 %; Platelet Count 369 10^3/uL (130-400); Red Blood Cell Count 4.01 10^6/uL (4.20-5.40); Red Cell Dist. Width 15.8 % (11.5-14.5); White Blood Cell Count 8.1 10^3/uL (4.8-10.8)
[2024-07-03 14:28] LABS: Iron 64 ug/dl (37-170)
[2024-07-03 14:37] LABS: Percent Saturation 20 % (20-50); Total Iron Binding Capacity 305 ug/dl (265-497)
[2024-07-03 15:19] LABS: Vitamin B12 822 pg/ml (239-931)
== END ==
LOC: RAD 12:57
PROVIDERS: ATTENDING PHYSICIAN Physician Assistant Surgical; FAMILY PHYSICIAN Internal Medicine; REFERRING PHYSICIAN Internal Medicine
DX: M79.662 Pain in left lower leg (principal); I48.0 Paroxysmal atrial fibrillation; D51.9 Vitamin B12 deficiency anemia, unspecified
CPT/HCPCS: 36415; 82607; 82728; 83540; 83550; 85025; 93971